=== PATIENT | female | born 1995 | race African-American/Black ===

== ENCOUNTER 2022-11-18 23:59 | Emergency (ER) | payer OTHER ==
[2022-11-19 00:04] VITALS: BP 142/96; PULSE 86; RESP 18; TEMP 98.4; BMI 23.5
[2022-11-19] MEDS ORDERED: ACETAMINOPHEN 325 MG TABLET (FP) PO ONE (01:02)
[2022-11-19] MEDS ORDERED: ACETAMINOPHEN 325 MG TABLET (FP) ONE (01:07)
== END 2022-11-19 01:31 | disposition home or self-care (01) ==
LOC: JER 23:59
DX: K08.89 Other specified disorders of teeth and supporting structures (principal)
CPT/HCPCS: 99283-25

== ENCOUNTER 2024-05-06 09:22 | Emergency (ER) | payer OTHER ==
[2024-05-06 09:51] VITALS: TEMP 97.8; BMI 22.8
[2024-05-06] MEDS ORDERED: ONDANSETRON 4 MG/2 ML VIAL ONE (09:52)
[2024-05-06] MEDS: ONDANSETRON 4 MG/2 ML VIAL IVPUSH ONE (09:56)
[2024-05-06] MEDS: SODIUM CHLORIDE 0.9% 500 ML INFUS.BAG IV ONE (09:56)
[2024-05-06 10:34] LABS: VENOUS BASE EXCESS -8.3 mmol/L (-2-2); VENOUS O2 SATURATION 36.6 % (70-80); VENOUS PCO2 46.3 mmHg (38-52); VENOUS PH 7.233 (7.310-7.410)
[2024-05-06 10:37] LABS: BASO % 0.2 % (0-2.0); HEMATOCRIT 37.8 % (32.4-45.2); HEMOGLOBIN 12.4 GM/dL (10.7-15.3); LYMPH % 6.7 % (8-40); MCH 26.4 pg (25.7-33.7); MCHC 32.7 g/dl (32.0-36.0); MEAN CELL VOLUME 80.6 fl (80-96); MEAN PLT VOLUME 8.7 fl (7.5-11.1); MONO % 4.5 % (3.8-10.2); NEUT % 88.6 % (42.8-82.8); PLATELET COUNT 256 10^3/uL (134-434); RBC 4.69 M/mm3 (3.60-5.2); RDW 17.2 % (11.6-15.6); WHITE BLOOD COUNT 13.6 K/mm3 (4.0-10.0)
[2024-05-06 10:49] LABS: ACTIVATED PTT 32.5 SECONDS (25.2-36.5); INR 1.02 (0.83-1.09); PROTHROMBIN TIME (PATIENT) 11.5 SEC (9.7-13.0)
[2024-05-06] MEDS ORDERED: BENZOCAINE/MENTH/CETYLPYRD CL 1 EACH LOZENGE MM ONE (10:54)
[2024-05-06 11:15] LABS: PH,URINE 5.5 (5.0-8.0); URINE APPEARANCE CLOUDY; URINE BILIRUBIN NEGATIVE (NEGATIVE); URINE COLOR YELLOW; URINE GLUCOSE (UA) 3+ (NEGATIVE); URINE KETONE 4+ (NEGATIVE); URINE LEUK ESTERASE NEGATIVE (NEGATIVE); URINE NITRITE NEGATIVE (NEGATIVE); URINE PROTEIN TRACE (NEGATIVE); URINE UROBILINOGEN 0.2 mg/dL (0.2-1.0)
[2024-05-06 11:19] LABS: POTASSIUM 4.7 mmol/L (3.5-5.1)
[2024-05-06 11:21] LABS: CALCIUM 9.5 mg/dL (8.5-10.1)
[2024-05-06 11:22] LABS: ALBUMIN 4.7 g/dl (3.4-5.0); BLOOD UREA NITROGEN 16.2 mg/dL (7-18); MAGNESIUM 1.7 mg/dL (1.8-2.4)
[2024-05-06 11:25] LABS: CREATININE 1.1 mg/dL (0.55-1.3)
[2024-05-06 11:26] LABS: BILIRUBIN,TOTAL 0.5 mg/dL (0.2-1); TOT PROT 8.7 g/dl (6.4-8.2)
[2024-05-06] MEDS ORDERED: MAGNESIUM SULFATE IN WATER 2 GM/50 ML IVPB IVPB ONE (12:12)
[2024-05-06] MEDS: BENZOCAINE/MENTH/CETYLPYRD CL 1 EACH LOZENGE MM PRN (12:16)
[2024-05-06] MEDS: MAGNESIUM SULFATE IN WATER 2 GM/50 ML IVPB IVPB ONE (12:16)
[2024-05-06 13:15] VITALS: BP 127/69; PULSE 96; RESP 18
== END 2024-05-06 13:16 | disposition home or self-care (01) ==
LOC: JER 09:22
PROC: 3E033GC Introduction of Other Therapeutic Substance into Peripheral Vein, Percutaneous Approach (ICD-10-PCS; principal; 2024-05-06)
PROC: 3E033GC Introduction of Other Therapeutic Substance into Peripheral Vein, Percutaneous Approach (ICD-10-PCS; 2024-05-06)
DX: R11.2 Nausea with vomiting, unspecified (principal); E10.65 Type 1 diabetes mellitus with hyperglycemia; Z79.4 Long term (current) use of insulin; Z20.822 Contact with and (suspected) exposure to COVID-19
CPT/HCPCS: 0241U-QW; 36415; 80053; 81003; 82010; 82803; 82962; 83690; 83735; 84703; 85025; 85610; 85730; 87086; 93005; 93010; 99284-25